=== PATIENT | female | born 1945 | race Caucasian/White ===

== ENCOUNTER 2018-06-17 13:13 | Emergency (ER) | payer OTHER, MEDICAID ==
[~2018-06-17] VITALS: Ht 152.4 cm; Wt 79.4 kg
[~2018-06-17 13:13] MED LIST: CHOL400T PO; FISH OIL500 M1 PO; [UNRECOGNIZED DRUG - REMARK] PO
[2018-06-17 13:21] VITALS: BP 142/75
--- NOTE | 2018-06-17 13:25 | NUR ---
PT AMBULATED BACK TO ER LOBBY WAITING FOR OPEN ER BED.
--- NOTE | 2018-06-17 14:18 | NUR ---
pt ambulated to er bed 08
--- NOTE | 2018-06-17 14:42 | NUR ---
PT. CAME INTO THE ED DUE TO HAVING A COLD FOR 1 WEEK. PT. STATES " I AHVE BEEN SICK FOR A WEEK AND I AHVE BEEN HAVING THIS SLIGHT HEADACHE ON MY FOREHEAD, MY DOCTOR GAVE ME MEDICATIONS BUT I STILL FEEL BAD". LS: CLEAR. COUGH PRESENT NON PRODUCTIVE. DENIES SOB. PT. HAS RR EVEN AND UNLABORED. ER MD NOTIFIED. WILL CONTINUE TO MONITOR.
[2018-06-17 15:21] VITALS: BP 142/68
--- NOTE | 2018-06-17 15:21 | NUR ---
Patient discharged with v/s stable. Written and verbal after care instructions given and explained. Patient alert, oriented and verbalized understanding of instructions. Ambulatory with steady gait. All questions addressed prior to discharge. ID band removed. Patient advised to follow up with PMD. Rx of ROBITUSSIN given. Patient educated on indication of medication including possible reaction and side effects. Opportunity to ask questions provided and answered.
== END 2018-06-17 15:21 | disposition home or self-care (01) ==
LOC: MED 13:13
DX: J06.9 Acute upper respiratory infection, unspecified (principal); Z90.89 Acquired absence of other organs; Z90.710 Acquired absence of both cervix and uterus; Z88.5 Allergy status to narcotic agent; Z88.8 Allergy status to other drugs, medicaments and biological substances; Z79.818 Long term (current) use of other agents affecting estrogen receptors and estrogen levels
CPT/HCPCS: 71045; 99283; Q0092